=== PATIENT | female | born 1955 | race Two or more races ===

== ENCOUNTER 2017-06-05 20:47 | Emergency (ER) | payer OTHER ==
[2017-06-05] MEDS ORDERED: NS 0.9% 1000 ML* 1,000 ML IV SCH (21:00)
--- NOTE | 2017-06-05 21:07 | UC ---
Abdominal Pain Female HPI - HPI Summary HPI Summary: BRBPR cramping abd. reports for 6 hours. no vomiting - History of Current Complaint Chief Complaint: UCGeneralIllness Stated Complaint: FACIAL NUMBNESS,ABD PAIN,DIZZY Time Seen by Provider: 06/05/17 21:00 Hx Obtained From: Patient ?: No Onset/Duration: Sudden Onset, Lasting Hours, Still Present Timing: Constant Severity Initially: Moderate Severity Currently: Moderate Pain Intensity: 8 Pain Scale Used: 0-10 Numeric Location: Diffuse, Discrete At: RLQ, Discrete At: LLQ Radiates: No Character: Cramping, Tearing Aggravating Factor(s): Nothing Alleviating Factor(s): Nothing Associated Signs and Symptoms: Positive: Dizzy, Diarrhea Allergies/Adverse Reactions: Allergies Allergy/AdvReac Type Severity Reaction Status Date / Time Penicillins Allergy Hives Verified 06/05/17 20:59 PMH/Surg Hx/FS Hx/Imm Hx Previously Healthy: No - IBS Cardiovascular History: Hypertension - Surgical History Surgical History: Yes Surgery Procedure, Year, and Place: Lt ACL REPAIR. Lt [facility] REPAIR. CHOLECYTECTOMY. Partial Hysterectomy - Family History Known Family History: Positive: None - Social History Occupation: Employed Full-time Lives: With Family Alcohol Use: Occasionally Substance Use Type: None Smoking Status (MU): Never Smoked Tobacco Review of Systems Constitutional: Negative Skin: Negative Eyes: Negative ENT: Negative Respiratory: Negative Cardiovascular: Negative Gastrointestinal: Abdominal Pain, Diarrhea Genitourinary: Negative Motor: Negative Neurovascular: Negative Musculoskeletal: Negative Neurological: Negative Psychological: Negative All Other Systems Reviewed And Are Negative: Yes Physical Exam Triage Information Reviewed: Yes Appearance: Well-Appearing, No Pain Distress, Well-Nourished, Pain Distress - mild Vital Signs: Initial Vital Signs Temp 99.5 F 06/05/17 20:56 Pulse 100 06/05/17 20:56 Resp 18 06/05/17 20:56 Pulse Ox 100 06/05/17 20:56 Vital Signs Reviewed: Yes Eye Exam: Normal Eyes: Positive: Conjunctiva Clear ENT Exam: Normal ENT: Positive: Normal ENT inspection, Hearing grossly normal. Negative: Nasal congestion, Nasal drainage, Trismus, Muffled/hoarse voice Dental Exam: Normal Neck exam: Normal Neck: Positive: Supple, Nontender, No Lymphadenopathy Respiratory Exam: Normal Respiratory: Positive: Chest non-tender, Lungs clear, Normal breath sounds, No respiratory distress, No accessory muscle use Cardiovascular Exam: Normal Cardiovascular: Positive: No Murmur, Pulses Normal, Brisk Capillary Refill, Tachycardia Abdominal Exam: Other Abdomen Description: Positive: No Organomegaly, Soft, Other: - lower right and left quad pain. Negative: CVA Tenderness (R), CVA Tenderness (L), Distended Bowel Sounds: Positive: Present Musculoskeletal Exam: Normal Musculoskeletal: Positive: Strength Intact, ROM Intact, No Edema Neurological Exam: Normal Neurological: Positive: Alert Psychological Exam: Normal Psychological: Positive: Normal Response To Family Skin Exam: Other - pale warm dry Abd Pain Female Course/Dx - Course Course Of Treatment: iv fluids, transfer via ambulance - Differential Dx/Diagnosis Differential Diagnosis: Appendicitis, Bowel Obstruction, Diverticulitis, Irritable Bowel Syndrome Provider Diagnoses: BRBPR Discharge - Discharge Plan Condition: Guarded Disposition: TRANS HIGHER LVL OF CARE FAC
[2017-06-05 21:11] VITALS: BP 160/100
== END 2017-06-05 21:22 | disposition short-term general hospital (02) ==
LOC: UCEAST 20:47
DX: K62.5 Hemorrhage of anus and rectum (principal); R42 Dizziness and giddiness; R10.31 Right lower quadrant pain; R10.32 Left lower quadrant pain; K58.9 Irritable bowel syndrome, unspecified; I10 Essential (primary) hypertension; Z90.49 Acquired absence of other specified parts of digestive tract; Z88.0 Allergy status to penicillin
CPT/HCPCS: 96360; 99213; G0463

== ENCOUNTER 2017-06-05 21:39 | Emergency (ER) | payer OTHER ==
[2017-06-05] MEDS ORDERED: NS 0.9% 1000 ML* 1,000 ML IV ONE (22:20)
[2017-06-05 22:31] LABS: Hematocrit 48 % (35-47); Hemoglobin 16.3 g/dl (12.0-16.0); Mean Corpuscular HGB Conc 34 g/dl (31-36); Mean Corpuscular Hemoglobin 33 pg (27-31); Mean Corpuscular Volume 97 fL (80-97); Mean Platelet Volume 9 um3 (7.4-10.4); Red Blood Count 4.96 10^6/ul (4.0-5.4); Red Cell Distribution Width 12 % (10.5-15); White Blood Count 12.8 10^3/ul (3.5-10.8)
[2017-06-05 22:54] LABS: Albumin 4.7 g/dL (3.2-5.2); BUN/Creatinine Ratio 22.5 (8-20); C Reactive Protein 3.59 mg/L (< 5.00); Calcium 9.6 mg/dL (8.6-10.3); EGFR African American 108.4 (>60); EGFR Non-African American 84.3 (>60); Globulin 3.2 g/dL (2-4); Magnesium 2.3 mg/dL (1.9-2.7); Potassium 3.7 mmol/L (3.5-5.0); Total Bilirubin 0.5 mg/dL (0.2-1.0); Total Protein 7.9 g/dL (6.4-8.9)
[2017-06-05 23:15] LABS: Urine Bacteria 1+ (Absent); Urine Bilirubin Negative (Negative); Urine Glucose Negative (Negative); Urine Nitrite Negative (Negative)
--- NOTE | 2017-06-06 00:07 | ED ---
I, Oh,Soohybeatriz, scribed for Geovany Mendoza MD on 06/05/17 at 2224 . Abdominal Pain/Female - HPI Summary HPI Summary: This 61 y/o female presents to ED for diffuse abd cramping since this morning. Positive copious nausea, diarrhea, and blood noted per rectum. Pt denies any unusual or bad food consumption but does admit that she had just eaten lunch right before the onset. PMHx includes IBS that is well managed per pt. Last colonoscopy was in 2010 and benign. Primary care involves Dr. Mora as PCP. No current GI specialist. - History of Current Complaint Chief Complaint: EDAbdPain Stated Complaint: FACIAL NUMBNESS/PAIN,DIZZY-SENT F [facility] Time Seen by Provider: 06/05/17 22:17 Hx Obtained From: Patient, Medical Records ?: Yes Onset/Duration: Sudden Onset Timing: Constant Pain Intensity: 6 Pain Scale Used: 0-10 Numeric Location: Diffuse Radiates: No Character: Dull, Cramping Aggravating Factor(s): Nothing Alleviating Factor(s): Nothing Associated Signs and Symptoms: Positive: Blood in Stool, Nausea, Diarrhea Allergies/Adverse Reactions: Allergies Allergy/AdvReac Type Severity Reaction Status Date / Time Penicillins Allergy Hives Verified 06/05/17 20:59 PMH/Surg Hx/FS Hx/Imm Hx Endocrine/Hematology History: Denies: Hx Diabetes, Hx Thyroid Disease Cardiovascular History: Reports: Hx Angina, Hx Hypertension Denies: Hx Myocardial Infarction, Hx Pacemaker/ICD Respiratory History: Denies: Hx Asthma GI History: Denies: Hx Ulcer History: Denies: Hx Renal Disease Sensory History: Denies: Hx Hearing Aid Psychiatric History: Denies: Hx Panic Disorder - Surgical History Surgery Procedure, Year, and Place: Lt ACL REPAIR. Lt [facility] REPAIR. CHOLECYTECTOMY. Partial Hysterectomy Infectious Disease History: No Infectious Disease History: Denies: Hx Clostridium Difficile, Hx Hepatitis, Hx Human Immunodeficiency Virus (HIV), Hx of Known/Suspected MRSA, Hx Shingles, Hx Tuberculosis, Hx Known/ Suspected VRE, Hx Known/Suspected VRSA, History Other Infectious Disease, Traveled Outside the [place] in Last 30 Days - Family History Known Family History: Positive: Other - Glaucoma - Social History Alcohol Use: Occasionally Hx Substance Use: No Substance Use Type: Reports: None Hx Tobacco Use: No Smoking Status (MU): Never Smoked Tobacco Review of Systems Negative: Fever Positive: Abdominal Pain - cramping, Diarrhea, Nausea, Other - blood per rectum All Other Systems Reviewed And Are Negative: Yes Physical Exam Triage Information Reviewed: Yes Vital Signs On Initial Exam: Initial Vitals Temp Pulse Resp BP Pulse Ox 98.9 F 89 14 149/75 97 06/05/17 21:52 06/05/17 21:52 06/05/17 21:52 06/05/17 21:52 06/05/17 21:52 Vital Signs Reviewed: Yes Appearance: Positive: Well-Appearing, No Pain Distress Skin: Positive: Warm Head/Face: Positive: Normal Head/Face Inspection Eyes: Positive: FRANCOIS ENT: Positive: Hearing grossly normal Neck: Positive: Supple Respiratory/Lung Sounds: Positive: Clear to Auscultation, Breath Sounds Present Cardiovascular: Positive: RRR Abdomen Description: Positive: Nontender, No Organomegaly, Soft Bowel Sounds: Positive: Present Musculoskeletal: Positive: Strength/ROM Intact Neurological: Positive: Alert, Oriented to Person Place, Time Psychiatric: Positive: Affect/Mood Appropriate Diagnostics - Vital Signs Vital Signs Temp Pulse Resp BP Pulse Ox 06/05/17 21:52 98.9 F 89 14 149/75 97 - Laboratory Result Diagrams: 06/05/17 21:00 06/05/17 21:00 Lab Statement: Any lab studies that have been ordered have been reviewed, and results considered in the medical decision making process. - CT Ab/P CT Interpretation: No Acute Changes - Fatty liver. Normal spleen. Normal pancreas. Surgically absent gallbladder. Stomach with small hiatal hernia. Normal small bowel. Large vowel with some segmental thickening in the distal transverse colon without pneumatosis or obstruction. Normal appendix. Normal adrenals. Normal kidney. Normal vascular. Normal lympatic. No free peritoneal air or fluid. Noaml uterus, rectum, and bladder. Inferior thorax normal. Nonspecific colitis. CT Interpretation Completed By: Radiologist Abdominal Pain Fem Course/Dx - Course Course Of Treatment: This 61 y/o female presents to ED for acute diarrhea and abd pain since this morning. PMHx is signficant for known IBS that has been well controlled per pt. Last colonoscopy was done 6 years ago and benign, and Pt has not been following up with her GI specialist since then. Blood work indicates elevated WBC of 12.8, but nml CRP and Hgb. UA is contaminated. Stool Occult indicates positive. CT Ab/P is noted with nonspecific colitis. Pt is given Benadryl IV and NS IV in ED. She remains stable during ED course. - Diagnoses Provider Diagnoses: Colitis Discharge - Discharge Plan Condition: Stable Disposition: HOME Patient Education Materials: Colitis (ED) Referrals: Cabrera Cintron MD [Primary Care Provider] - 2 Days The documentation as recorded by the John garcia Soohyun accurately reflects the service I personally performed and the decisions made by Kelly arcos David, MD.
[2017-06-06] MEDS ORDERED: Iohexol 300* (CONTRAST) 10 ML SDV IV ONE (01:17)
[2017-06-06] MEDS ORDERED: diPHENhydraMINE IV* 50 MG/ML 1 ml VIAL (BENADRYL) IV ONE (01:22)
[2017-06-06 02:41] VITALS: BP 144/87
--- NOTE | 2017-06-06 07:52 | RAD ---
CLINICAL HISTORY: Abdominal pain COMPARISON: None TECHNIQUE: Multiple contiguous axial CT scans were obtained of the abdomen and pelvis after the administration of intravenous contrast. Coronal and sagittal multiplanar reformations are submitted for review. Oral contrast was administered. Delayed images were obtained through the abdomen and pelvis. FINDINGS: LUNG BASES: The lung bases are clear. LIVER: The liver is diffusely low in attenuation compared to the spleen. There are no focal hepatic parenchymal masses. BILE DUCTS: There is no intrahepatic or extrahepatic biliary dilatation. GALLBLADDER: The gallbladder is not visualized. Surgical clips are noted in the gallbladder fossa. PANCREAS: The pancreas is normal, without mass or ductal dilatation. SPLEEN: Normal in size and appearance. UPPER GI TRACT: Evaluation of the gastrointestinal tract is limited by incomplete gastric distention. There is a small sliding hiatal hernia. SMALL BOWEL AND MESENTERY: The small bowel is normal in contour, course, and caliber. There is no obstruction or dilatation. COLON: There is mucosal thickening of the distal transverse colon and the proximal descending colon near the splenic flexure. ADRENALS: Normal bilaterally. KIDNEYS: There is an extra renal pelvis on the right. There is no appreciable hydronephrosis or nephrolithiasis. BLADDER: The bladder is smooth in contour. PELVIC ORGANS: The pelvic organs are not visualized. AORTA: The aorta is normal. IVC: Unremarkable LYMPH NODES: There is no lymphadenopathy by size criteria. ABDOMINAL WALL: There is no evidence for abdominal wall hernia. BONES AND SOFT TISSUES: There is a scoliotic curvature of the spine. Degenerative changes are noted OTHER: None IMPRESSION: 1. THERE IS MUCOSAL THICKENING OF THE DISTAL TRANSVERSE COLON AND THE PROXIMAL DESCENDING COLON. THE DIFFERENTIAL INCLUDES COLITIS. COLONIC MUCOSAL NEOPLASM MAY GIVE A SIMILAR APPEARANCE. RECOMMEND CONSIDERATION OF CORRELATION WITH DIRECT VISUALIZATION IN THE NONACUTE SETTING. 2. FATTY LIVER.
--- NOTE | 2017-06-07 16:40 | PN ---
Progress Note - Progress Note Date of Service: 06/05/17 Note: D/c with diagnosis of colitis. stool culture final results negative for shiga toxin. no further action or change needed at this time.
== END 2017-06-06 02:41 | disposition home or self-care (01) ==
LOC: ED 21:39
DX: K52.9 Noninfective gastroenteritis and colitis, unspecified (principal); K92.1 Melena; Z88.0 Allergy status to penicillin; I20.9 Angina pectoris, unspecified; I10 Essential (primary) hypertension; Z90.49 Acquired absence of other specified parts of digestive tract; Z90.711 Acquired absence of uterus with remaining cervical stump
CPT/HCPCS: 36415; 74177; 80053; 81003; 81015; 82272; 83605; 83690; 83735; 85025; 85610; 86140; 87045; 87046; 87077; 87086; 87899; 96361; 96374; 99284; J1200; Q9967

== ENCOUNTER 2017-08-14 07:09 | Day surgery (SDC) | payer OTHER ==
[~2017-08-14 07:09] MED LIST: Acetaminophen TAB* 325 MG PO PRN; Buffered Lidocaine 0.9% SYRIN* 5 ML/SYR SYRINGE INTRADERM ONE
[2017-08-14] MEDS ORDERED: Famotidine IV* 10 MG/ML 2 ML (20 mg) ONE (07:55)
[2017-08-14] MEDS ORDERED: Midazolam* 1 MG/ML 2 ML VIAL (2 MG) ONE ×2 (08:03→08:04)
[2017-08-14] MEDS ORDERED: fentaNYL* 50 MCG/ML 2 ML VIAL (100 MCG VIAL) ONE (08:04)
[2017-08-14 08:58] VITALS: BP 116/96
[2017-08-14] MEDS ORDERED: Phenylephrine 2.5% OPTH.SOL* 2 ML BTL ONE (13:21)
[2017-08-14] MEDS ORDERED: Tetracaine 0.5% OPTH.SOL 4 ML* 1 DROP BTL ONE (13:21)
[2017-08-14] MEDS ORDERED: Neomycin/Polymy/Dex OPHTH.OIN* 3.5 GM ONE (13:21)
[2017-08-14] MEDS ORDERED: Cyclopentolate 1% OPTH.SOL* 2 ML BTL ONE (13:21)
[2017-08-14] MEDS ORDERED: Lidocaine 1% MPF* 2 ML VIAL ONE (13:21)
[2017-08-14] MEDS ORDERED: Tropicamide 1% OPTH.SOL* BTL ONE (13:21)
[2017-08-14] MEDS ORDERED: acetaZOLAMIDE TAB* 250 MG ONE (13:21)
[2017-08-14] MEDS ORDERED: Povidone Iodine 5% OPTH* 30 ML BTL ONE (13:21)
[2017-08-14] MEDS ORDERED: Ketorolac 0.5% OPHTH (NF) 0.5 % 5 ML BTL ONE (13:22)
--- NOTE | 2017-08-15 00:53 | OP ---
OPERATIVE REPORT: DATE OF OPERATION: 08/14/17 - JAQUI DATE OF : 59 SURGEON: Massimo Wilburn MD ANESTHESIOLOGIST: Angel Grissom MD ANESTHESIA: Monitored anesthesia care. PRE-OP DIAGNOSIS: Cataract, right eye. POST-OP DIAGNOSIS: Cataract, right eye. OPERATIVE PROCEDURE: Cataract extraction of the right eye. IMPLANTS: SN60WF 11.0 diopter lens to the right eye. COMPLICATIONS: None. DESCRIPTION OF PROCEDURE: The patient was given phenylephrine 2.5% and cyclopentolate 1% eye drops to the operative eye in the preoperative area. The patient was brought to the operating room where a time-out was taken to identify the correct patient, site and side of surgery. The patient's right eye was prepped and draped in the usual sterile fashion with 5% Betadine. A second time-out was taken to verify the correct patient, site and side of surgery, and correct lens selection. A lid speculum was placed to the right eye. A 1-mm paracentesis blade was used to make a clear corneal incision in the superotemporal position. Preservative-free 1% lidocaine was injected into the anterior chamber. DisCoVisc was injected into the anterior chamber. A 2.75 mm keratome blade was used to make a triplanar incision at the inferotemporal position. A cystotome initiated a capsulorrhexis which was completed with Utrata forceps in a continuous and curvilinear manner. Hydrodissection of the lens was performed with BSS on a cannula. The lens could be spun in a capsular bag. The phacoemulsification handpiece was used with a [id number] technique to remove the nucleus in its entirety with 11.0 CDE. The I/A handpiece was then removed from the residual cortical lens material. DisCoVisc was injected to inflate the capsular bag. The planned SN60WF 11.0 diopter lens was injected into the capsular bag. The residual DisCoVisc was removed from the eye with the I/A handpiece. The corneal incisions were hydrated and no leaks occurred at physiologic pressure around 20 mmHg per palpation. The lid speculum was removed and drapes removed. Maxitrol ointment was placed to the surface of the operative eye. An adhesive patch and shield was placed on the operative eye. The patient was taken to the postoperative area in stable condition. [id number]/[facility] #: [id number] [facility] HOSPITALBrad
== END 2017-08-14 08:49 | disposition home or self-care (01) ==
LOC: OREAST 07:09
PROVIDERS: ATTEND Student in an Organized Health Care Education/Training Program
DX: H25.11 Age-related nuclear cataract, right eye (principal); H43.813 Vitreous degeneration, bilateral; H04.123 Dry eye syndrome of bilateral lacrimal glands; I10 Essential (primary) hypertension; F41.9 Anxiety disorder, unspecified; M19.90 Unspecified osteoarthritis, unspecified site; E78.5 Hyperlipidemia, unspecified; G47.33 Obstructive sleep apnea (adult) (pediatric)
CPT/HCPCS: A9270-GY; J2250; J3010; V2632

== ENCOUNTER 2017-08-21 06:31 | Day surgery (SDC) | payer OTHER ==
[2017-08-21] MEDS ORDERED: Midazolam* 1 MG/ML 2 ML VIAL (2 MG) ONE (07:34)
[2017-08-21] MEDS ORDERED: fentaNYL* 50 MCG/ML 2 ML VIAL (100 MCG VIAL) ONE (07:34)
[2017-08-21 08:23] VITALS: BP 115/74
--- NOTE | 2017-08-21 09:13 | OP ---
DATE OF OPERATION: 08/21/17 - [facility] DATE OF : 59 SURGEON: Massimo Wilburn MD. ANESTHESIOLOGIST: Joe Urias MD ANESTHESIA: Monitored anesthesia care. PRE-OP DIAGNOSIS: Cataract, left eye. POST-OP DIAGNOSIS: Cataract, left eye. OPERATIVE PROCEDURE: Cataract surgery, left eye. IMPLANTS: SN60WF 12.0 diopter lens to the left eye. COMPLICATIONS: None. DESCRIPTION OF PROCEDURE: The patient was given phenylephrine 2.5% and cyclopentolate 1% eye drops to the operative eye in the preoperative area. The patient was brought to the operating room, where a time-out was taken to identify the correct patient, site, and side of the surgery. The patient's left eye was prepped and draped in the usual sterile fashion with 5% Betadine. A second time- out was taken to verify the correct patient, site and side of surgery and correct lens selection. A lid speculum was placed to the left eye. A 1-mm paracentesis blade was used to make a clear corneal incision in the inferotemporal position. Preservative-free 1% lidocaine was injected into the anterior chamber. DisCoVisc was injected into the anterior chamber. A 2.75-mm keratome blade was used to make a triplanar incision at the superotemporal position. A cystotome initiated a capsulorrhexis, which was completed with Utrata forceps in a continuous and curvilinear manner. Hydrodissection of the lens was performed with BSS on a cannula. The lens could be spun in the capsular bag. The phacoemulsification handpiece was used with a divide-and- conquer technique to remove the nucleus in its entirety with 10.54 CDE. The I/ A handpiece then removed the residual cortical lens material. DisCoVisc was injected to inflate the capsular bag. The planned SN60WF 12.0 diopter lens was injected into the capsular bag. The residual DisCoVisc was removed from the eye with the I/A handpiece. The corneal incisions were hydrated and no leaks occurred at physiologic pressure around 20 mmHg per palpation. The lid speculum was removed and drapes removed. Maxitrol ointment was placed on the surface of the operative eye. An adhesive patch and shield was placed on the operative eye. The patient was taken to the postoperative area in stable condition. [id number]/[facility] #: [id number] [facility]
[2017-08-21] MEDS ORDERED: Phenylephrine 2.5% OPTH.SOL* 2 ML BTL ONE (14:50)
[2017-08-21] MEDS ORDERED: Lidocaine 1% MPF* 2 ML VIAL ONE (14:50)
[2017-08-21] MEDS ORDERED: Povidone Iodine 5% OPTH* 30 ML BTL ONE (14:50)
[2017-08-21] MEDS ORDERED: acetaZOLAMIDE TAB* 250 MG ONE (14:50)
[2017-08-21] MEDS ORDERED: Cyclopentolate 1% OPTH.SOL* 2 ML BTL ONE (14:50)
[2017-08-21] MEDS ORDERED: Tropicamide 1% OPTH.SOL* BTL ONE (14:50)
[2017-08-21] MEDS ORDERED: Neomycin/Polymy/Dex OPHTH.OIN* 3.5 GM ONE (14:50)
[2017-08-21] MEDS ORDERED: Tetracaine 0.5% OPTH.SOL 4 ML* 1 DROP BTL ONE (14:50)
[2017-08-21] MEDS ORDERED: Ketorolac 0.5% OPHTH (NF) 0.5 % 5 ML BTL ONE (14:51)
[2017-08-21] MEDS ORDERED: Buffered Lidocaine 0.9% SYRIN* 5 ML/SYR SYRINGE ONE (14:51)
== END 2017-08-21 08:33 | disposition home or self-care (01) ==
LOC: OREAST 06:31
PROVIDERS: ATTEND Student in an Organized Health Care Education/Training Program
DX: H25.12 Age-related nuclear cataract, left eye (principal); G47.33 Obstructive sleep apnea (adult) (pediatric); I10 Essential (primary) hypertension; E55.9 Vitamin D deficiency, unspecified; E53.8 Deficiency of other specified B group vitamins; K58.9 Irritable bowel syndrome, unspecified; Z79.82 Long term (current) use of aspirin; Z88.1 Allergy status to other antibiotic agents; Z88.0 Allergy status to penicillin; Z91.041 Radiographic dye allergy status
CPT/HCPCS: A9270-GY; J2250; J3010; V2632